=== PATIENT | female | born 1995 | race Two or more races ===

== ENCOUNTER 2019-06-12 01:17 | Inpatient (IN) | payer OTHER ==
[~2019-06-12] VITALS: Ht 160 cm; Wt 71.4 kg
[2019-06-12] MEDS ORDERED: ACETAMINOPHEN 325 MG TABLET PO PRN (02:00)
[2019-06-12] MEDS ORDERED: MORPHINE SULFATE INJ 2 MG/ML DISP.SYRIN IV PRN (02:00)
[2019-06-12] MEDS ORDERED: ONDANSETRON HCL/PF 4 MG/2 ML VIAL IVP PRN (02:00)
[2019-06-12 05:02] VITALS: BP 129/85
--- NOTE | 2019-06-12 05:05 | NUR ---
RN OPEN NOTES RECEIVED PATIENT FROM [facility] DIRECT ADMIT VIA EMT. A/O X4. NO SIGNS OF DISTRESS OR DISCOMFORT. BREATHING EVEN AND UNLABORED. IV ACCESS IN LAC, PATENT AND INTACT, NO SIGNS OF REDNESS OR INFILTRATION. ORIENTED PATIENT TO UNIT AND ROOM. SKIN INTACT. BED IN LOW LOCKED POSITION WITH SIDE RAILS X2. CALL LIGHT WITHIN REACH. WILL CONTINUE TO MONITOR.
[2019-06-12] MEDS: IV NS 0.9% 1,000 ML IV PRN (06:13)
--- NOTE | 2019-06-12 06:22 | NUR ---
RN CLOSING NOTES PATIENT RESTING IN BED, EASILY AROUSABLE. A/O X4. NO SIGNS OF DISTRESS OR DISCOMFORT. BREATHING EVEN AND UNLABORED. STATES PAIN IS 2/10 AND TOLERABLE AT THIS TIME. IV ACCESS IN LAC, PATENT AND INTACT, NO SIGNS OF REDNESS OR INFILTRATION. ALL NEEDS MET. NO SIGNIFICANT CHANGES THROUGH THE NIGHT. BED IN LOW LOCKED POSITION WITH SIDE RAILS X2. CALL LIGHT WITHIN REACH. WILL ENDORSE TO AM SHIFT FOR DANIELLE.
[2019-06-12] MEDS ORDERED: PREN1TAB81 PO (07:51)
[2019-06-12 07:58] LABS: BASOPHILS % (AUTO) 0.3 % (0.0-2.0); EOSINOPHILS % (AUTO) 0.8 % (0.0-6.0); HEMATOCRIT 40 % (33-45); LYMPHOCYTES % (AUTO) 29.7 % (20.0-44.0); MEAN CORPUSCULAR HGB CONC 33 g/dl (31.0-36.0); MEAN CORPUSCULAR VOLUME 85 fL (82-100); MONOCYTES # (AUTO) 0.5 /CMM (0.1-1.30); MONOCYTES % (AUTO) 7.8 % (2.0-12.0); NEUTROPHILS # (AUTO) 4.2 /CMM (1.8-8.9); NEUTROPHILS % (AUTO) 61.4 % (43.0-81.0); PLATELET COUNT (AUTO) 309 /CMM (150-450); RED BLOOD CELL COUNT(AUTO) 4.65 MIL/uL (4.0-5.2); WHITE BLOOD COUNT (AUTO) 6.9 K/uL (4.3-11.0)
[2019-06-12 08:00] VITALS: BP 130/71
[2019-06-12 08:13] LABS: ALBUMIN 3.7 g/dL (3.4-5.0); BILIRUBIN,DIRECT 0.4 mg/dL (0.0-0.2); BILIRUBIN,TOTAL 0.9 mg/dL (0.2-1.0); CALCIUM, SERUM 9.4 mg/dL (8.5-10.1); CREATININE 0.6 mg/dL (0.6-1.3); POTASSIUM 4.3 mmol/L (3.5-5.1); TOTAL PROTEIN, SERUM 7.6 g/dL (6.4-8.2)
[2019-06-12] MEDS: PANTOPRAZOLE 40 MG VIAL IV SCH (10:59)
[2019-06-12] MEDS ORDERED: PIPERACILLIN /TAZOBACTAM 3.375 G in IV D5W 50 ML IV ONE (11:00)
[2019-06-12 16:00] VITALS: BP 128/66
[2019-06-12] MEDS: PIPERACILLIN /TAZOBACTAM 3.375 G in IV D5W 100 ML IV SCH (17:43)
--- NOTE | 2019-06-12 19:05 | NUR ---
RN MS OPENING NOTES RECEIVED PATIENT IN BED AWAKE ALERT AND ORIENTED X4, RESPIRATIONS EVEN AND UNLABORED WITH EQUAL RISE AND FALL OF CHEST, DENIES ANY PAIN OR DISCOMFORT AT THIS TIME, IV SITE TO LEFT AC #20 G INTACT AND PATENT, NO REDNESS, NO INFILTRATION PRESENT, ORIENTED TO STAFF AND CALL LIGHT AND KEPT WITHIN REACH, SAFETY PRECAUTIONS IN PLACE, LOW BED AND LOCKED, ALL NEEDS ATTENDED AT THIS TIME DISCUSSED PLAN OF CARE AWARE OF NPO STATUS AT MIDNIGHT FOR PENDING AM PROCEDURE, WILL CONTINUE TO MONITOR.
[2019-06-12 20:00] VITALS: BP 108/66
[2019-06-13] MEDS: IV NS 0.9% 1,000 ML IV PRN (00:16)
[2019-06-13] MEDS: PIPERACILLIN /TAZOBACTAM 3.375 G in IV D5W 100 ML IV SCH ×3 (00:16→16:34)
[2019-06-13 06:55] LABS: BASOPHILS % (AUTO) 0.4 % (0.0-2.0); EOSINOPHILS % (AUTO) 2.4 % (0.0-6.0); HEMATOCRIT 38 % (33-45); HEMOGLOBIN 12.6 g/dL (11.5-14.8); LYMPHOCYTES # (AUTO) 2.7 /CMM (0.8-4.8); LYMPHOCYTES % (AUTO) 35.6 % (20.0-44.0); MEAN CORPUSCULAR HGB CONC 33 g/dl (31.0-36.0); MEAN CORPUSCULAR VOLUME 85 fL (82-100); MONOCYTES # (AUTO) 0.5 /CMM (0.1-1.30); MONOCYTES % (AUTO) 6.1 % (2.0-12.0); NEUTROPHILS # (AUTO) 4.2 /CMM (1.8-8.9); NEUTROPHILS % (AUTO) 55.5 % (43.0-81.0); PLATELET COUNT (AUTO) 306 /CMM (150-450); RED BLOOD CELL COUNT(AUTO) 4.51 MIL/uL (4.0-5.2); WHITE BLOOD COUNT (AUTO) 7.7 K/uL (4.3-11.0)
--- NOTE | 2019-06-13 07:07 | NUR ---
RN MS CLOSING NOTES PATIENT IN BED AWAKE ALERT AND ORIENTED X4, RESPIRATIONS EVEN AND UNLABORED WITH EQUAL RISE AND FALL OF CHEST, DENIES ANY PAIN OR DISCOMFORT AT THIS TIME, IV SITE TO LEFT AC #20 G INTACT AND PATENT, NO REDNESS, NO INFILTRATION PRESENT, CALL LIGHT KEPT WITHIN REACH, SAFETY PRECAUTIONS IN PLACE, LOW BED AND LOCKED, ALL NEEDS ATTENDED AT THIS TIME NPO STATUS AT MIDNIGHT FOR PENDING AM PROCEDURE, WILL CONTINUE TO MONITOR AND ENDORSE TO NEXT SHIFT.ALL DUE MEDS GIVEN WITH NO ADVERSE REACTIONS.
[2019-06-13 07:21] LABS: CALCIUM, SERUM 9.1 mg/dL (8.5-10.1); CREATININE 0.7 mg/dL (0.6-1.3); MAGNESIUM 1.8 mg/dL (1.8-2.4); PHOSPHORUS 4.9 mg/dL (2.5-4.9); POTASSIUM 3.6 mmol/L (3.5-5.1)
[2019-06-13 08:00] VITALS: BP 114/67
--- NOTE | 2019-06-13 08:00 | NUR ---
RN NOTES RECEIVED PATIENT IN THE ROOM WAS SITTING EDGE OF THE BED. PATIENT A/O X4, STABLE NO ACUTE RESPIRATORY DISTRESS. PATIENT NPO, WAS SCHEDULED FOR SURGERY LAPAROSCOPIC CHOLECYSTECTOMY 0830 AM. PATIENT REFUSED PAIN, BUT ANXIOUS BECAUSE OF GOING TO SURGERY. ADMINISTERED SCHEDULED MEDICATION. V/S STABLE. ALL JEWELERS REMOVED, CHECKLIST DONE. CALL LIGHT WITHIN TO REACH. CONTINUED MONITORING.
[2019-06-13] MEDS ORDERED: MIDAZOLAM HCL 2 MG/2ML VIAL ONE (08:09)
[2019-06-13] MEDS ORDERED: HYDROMORPHONE INJ 2 MG/ML DISP.SYRIN ONE ×2 (08:09→10:47)
[2019-06-13] MEDS ORDERED: ROCURONIUM BROMIDE 50 MG/5 ML ONE (08:10)
[2019-06-13] MEDS: PANTOPRAZOLE 40 MG VIAL IV SCH (08:32)
--- NOTE | 2019-06-13 08:32 | NUR ---
RN NOTES PATIENT STABLE V/S WNL BP 114/67, P-57, R-18, T-98.1, O2-98 ROOM AIR, END FINDER FORMING DEPARTMENT FOR SURGERY AT THIS TIME.
[2019-06-13 08:51] LABS: ALBUMIN 3.3 g/dL (3.4-5.0); BILIRUBIN,DIRECT 0.1 mg/dL (0.0-0.2); BILIRUBIN,TOTAL 0.6 mg/dL (0.2-1.0); TOTAL PROTEIN, SERUM 6.8 g/dL (6.4-8.2)
[2019-06-13] MEDS ORDERED: BUPIVACAINE 0.5 % PF 150 MG/30 ML VIAL ONE (09:47)
[2019-06-13] MEDS ORDERED: BUPIVACAINE MPF 0.5% W/EPI INJ 30 ML VIAL ONE (10:00)
--- NOTE | 2019-06-13 11:10 | NUR ---
RN NOTE SD PATIENT BACK FROM SURGERY AT THIS TIME, AWAKE, BUT STILL DROWSY NO ACUTE RESPIRATORY DISTRESS, V/S TAKEN T-98.5, R-69, R-18, BP-142/83, O2-98 ROOM AIR, WAS COMPLAINING OF PAIN 7/10 ON PAIN SCALE ON SURGICAL AREAS. PATIENT HAS A 4 HOLES AND STAPLED, DRESSING INTACT NO BLEEDING. GIVEN INCENTIVE SPIROMETER AND EDUCATED FOR BREATHING WHEN AWAKE. DVT PUMP ON. PATIENT VERBALIZED UNDERSTANDING. CALL LIGHT WITHIN TO REACH, SAFETY PRECAUTION MAINTAINED ALL THE TIME.
[2019-06-13 11:15] VITALS: BP 146/74
[2019-06-13 12:02] VITALS: BP 128/78
[2019-06-13] MEDS ORDERED: IV D5/0.45 NACL W/20 MEQ KCL 1L IV PRN ×2 (12:30)
[2019-06-13] MEDS ORDERED: ZOLPIDEM TARTRATE 5 MG TABLET PO PRN (12:30)
[2019-06-13] MEDS: MORPHINE SULFATE INJ 2 MG/ML DISP.SYRIN IV PRN ×2 (13:05→16:37)
--- NOTE | 2019-06-13 13:05 | NUR ---
rn notes administered morphine sulfate 2 mg/ml iv push for abdominal pain 01/18 per patient request, v/s taken bp 128/76, p-70, r-18. call light within to reach. patient tolerated food well, no complaining of nausea/vomiting at this time. family next to the bed. continued monitoring.
[2019-06-13] MEDS: oxyCODONE/APAP (5/325 MG) 1 UDTAB TABLET PO PRN ×2 (14:36→23:42)
--- NOTE | 2019-06-13 14:36 | NUR ---
en notes administered Percocet 5/325 mg po prn for abdomen 6/10per pain scale, per patient request, v/s taken bp-122/67, p-100, r-20, continued monitoring.
[2019-06-13 15:00] VITALS: BP 122/68
[2019-06-13 16:00] VITALS: BP 128/66
--- NOTE | 2019-06-13 16:37 | NUR ---
RN NOTES ADMINISTERED MORPHINE SULFATE 2 MG/ML IV PUSH FOR ABDOMINAL PAIN 01/18 PER PATIENT REQUEST, V/ S TAKEN BP 128/66, P-83, R-19 CONTINUED MONITORING.
--- NOTE | 2019-06-13 18:30 | NUR ---
RN NOTES MEDICATION WERE ADMINISTERED FOR PAIN EFFECTIVE, PATIENT TOLERATED DINNER WELL, INFUSING ZOSYN 25 ML/HR ON RIGHT FA INTACT. FRIEND NEXT TO THE BED. DRESSING INTACT. CALL LIGHT WITHIN TO REACH. DVT PUMP ON, V/S STABLE. PATIENT AMBULATED WITH THE ASSIST TO THE BATHROOM. ENDORSED ONCOMING NURSE FOLLOW PLAN OF CARE.
[2019-06-13 20:00] VITALS: BP 121/72
--- NOTE | 2019-06-13 22:05 | NUR ---
Checked abdominal site.Three surgical site present on the right side and medial portion of abd.All covered and secured with band-aid.No signs of swelling,redness or drainage but c/opain which patient requested medication for;medicate as per Md's order.
[2019-06-14] MEDS: MORPHINE SULFATE INJ 2 MG/ML DISP.SYRIN IV PRN ×3 (00:44→08:52)
--- NOTE | 2019-06-14 00:55 | NUR ---
Found room to be cold,asked patient if she was ,said she was-notified the nurse's station. I then saw the thermostat and increased the temperature,room became warm right away so when the Night Order Selector showed up it was to conform that the thermostat worked,no problems.
--- NOTE | 2019-06-14 01:06 | NUR ---
Checked with patient to see if temperature was ok,she said it was.no problems
[2019-06-14] MEDS: PIPERACILLIN /TAZOBACTAM 3.375 G in IV D5W 100 ML IV SCH ×2 (01:13→08:43)
--- NOTE | 2019-06-14 02:36 | NUR ---
Patient called.Needed assistance to the bathroom.Inquired how she needed my assistance,showed me how.Assisted to and from the bathroom,tolerated well.
[2019-06-14 06:55] LABS: BASOPHILS % (AUTO) 0.4 % (0.0-2.0); EOSINOPHILS % (AUTO) 1.1 % (0.0-6.0); HEMATOCRIT 37 % (33-45); HEMOGLOBIN 12.4 g/dL (11.5-14.8); LYMPHOCYTES # (AUTO) 3.5 /CMM (0.8-4.8); LYMPHOCYTES % (AUTO) 34.5 % (20.0-44.0); MEAN CORPUSCULAR HGB CONC 33 g/dl (31.0-36.0); MEAN CORPUSCULAR VOLUME 85 fL (82-100); MONOCYTES # (AUTO) 0.9 /CMM (0.1-1.30); MONOCYTES % (AUTO) 9.4 % (2.0-12.0); NEUTROPHILS # (AUTO) 5.5 /CMM (1.8-8.9); NEUTROPHILS % (AUTO) 54.6 % (43.0-81.0); PLATELET COUNT (AUTO) 325 /CMM (150-450); WHITE BLOOD COUNT (AUTO) 10.1 K/uL (4.3-11.0)
[2019-06-14 07:19] LABS: CALCIUM, SERUM 8.8 mg/dL (8.5-10.1); CREATININE 0.6 mg/dL (0.6-1.3); MAGNESIUM 1.7 mg/dL (1.8-2.4)
[2019-06-14 07:26] LABS: ALBUMIN 3.2 g/dL (3.4-5.0); BILIRUBIN,DIRECT 0.1 mg/dL (0.0-0.2); BILIRUBIN,TOTAL 0.4 mg/dL (0.2-1.0); TOTAL PROTEIN, SERUM 6.7 g/dL (6.4-8.2)
[2019-06-14 08:00] VITALS: BP 121/83
--- NOTE | 2019-06-14 08:00 | NUR ---
RN Notes: Listened to lungs, heart, abdomen; A&O x 4; lung sounds clear; wounds intact; no drainage; bowel sounds present in all four quadrants; patient passing gas; assisted patient to bathroom; DVT pump on; patient using incentive spirometer; patient complaining pain in the abdomen (01/18); will administer pain medication.
[2019-06-14 08:19] VITALS: BP 119/81
[2019-06-14] MEDS: PANTOPRAZOLE 40 MG VIAL IV SCH (08:43)
--- NOTE | 2019-06-14 08:53 | NUR ---
RN notes: Administered Morphine Sulphate 2mg/ml for pain of the abdomen rated at 6/10 per patient's request; Vital signs - Temp: 97.7 RR: 20 HR:73 BP: 121/83. Continue monitoring.
[2019-06-14] MEDS: Magnesium 1GM/D5W 100ML PREMIX 100 ML IV SCH ×4 (09:56→15:24)
--- NOTE | 2019-06-14 13:03 | NUR ---
RN Notes: Per hospitalist, Dr. Sharp, patient will be d/c home; self care; pain management will follow up with surgeon; Infusing Magnesium 100ml/hr at right forearm; Tolerated lunch 100%; Safety precautions monitoring.
[2019-06-14 16:24] VITALS: BP 117/78
--- NOTE | 2019-06-14 16:31 | NUR ---
ELECTRICIAN DECK NOTES PATIENT DISCHARGE AT THIS TIME GOING HOME. PATIENT STABLE REFUSED PAIN, V/S STABLE, NO ACUTE RESPIRATORY DISTRESS. MED RECONCILIATION AND DISCHARGE ORDER REVIEWED AND EXPLAINED TO PATIENT. PATIENT VERBALIZED UNDERSTANDING. BELONGING WITH THE PATIENT, SIGN PAPERWORK, PICTURE TAKEN. Patient did well during hospitalization Anxious to go home with at home Pain control per surgery.Followup with surgery Dr Escalera as outpatient in one week phone # [phone]. Escorted patient to the lobby for safety. Patient nut picker by Reagan- phone #[phone].
== END 2019-06-14 16:25 | disposition home or self-care (01) | DRG 263 ==
LOC: MED 04:51
PROVIDERS: ADMIT Nurse Practitioner Acute Care; ATTEND Nurse Practitioner Acute Care
PROC: 0FT44ZZ Resection of Gallbladder, Percutaneous Endoscopic Approach (ICD-10-PCS; principal; 2019-06-13)
DX: K80.62 Calculus of gallbladder and bile duct with acute cholecystitis without obstruction (principal); K85.10 Biliary acute pancreatitis without necrosis or infection; K65.9 Peritonitis, unspecified
CPT/HCPCS: 36415; 74181-TC; 80048-TC; 80061-TC; 80076-TC; 83690-TC; 83735-TC; 84100-TC; 84702-TC; 84703-TC; 85025-TC; 87081-TC; 88304-TC; 97116-TC; 97530-TC; C9113; G0378; J1100; J1170; J1200; J2250; J2270; J2405; J2543; J2710; J2765; J3475; J3480; J3490; J7030; J7060